=== PATIENT | male | born 1975 | race Caucasian/White ===

== ENCOUNTER 2016-03-20 23:43 | Emergency (ER) | payer SELFPAY ==
[~2016-03-20 23:43] MED LIST: AMLODIPINE BESY10 MG PO; ASPIR LOW81 MG PO; ATORVASTATIN CA80 MG PO; AUGMENTIN 875-1 EAC1 PO; BENADRYL ALLERG25 M2 PO; CLEOCIN PO; CLOPIDOGREL PO; COLCHICINE0.6 M1 PO; COUMADIN5 MG PO; CYMBALTA 60MG60 MG PO; CYMBALTA30 M1 PO; CYMBALTA60 M1 PO; DESYREL 50MG50 MG PO; DURAGESIC25 MCG/PAT TD; GLUCOTROL 5M5 MG/TAB PO; INDOMETHACIN SR75 MG PO; LISINOPRIL40 MG PO; LISINOPRIL5 MG PO; MEDI-FIRST ASP325 MG PO; METOPROLOL SUCC50 M2; NEURONTIN300 M1 PO; NITROSTAT0.4 M1 SL; NORCO 10-325 T1 EACH PO; NORCO 325 MG-51 TA1 PO; NORCO 325 MG-51 TAB PO; PERCOCET 325 MG1 TA2 PO; ULTRAM50 M1 PO; XANAX0.5 M1 PO; [UNRECOGNIZED DRUG - OTHER] PO
[2016-03-21] MEDS ORDERED: FLEXERIL 1010 MG/TAB PO (01:09)
[2016-03-21] MEDS ORDERED: NORCO 325 MG-51 TA1 PO (01:09)
== END 2016-03-21 02:00 | disposition home or self-care (01) ==
LOC: ED 23:43
DX: M54.41 Lumbago with sciatica, right side (principal); M54.42 Lumbago with sciatica, left side; R07.9 Chest pain, unspecified; S90.211A Contusion of right great toe with damage to nail, initial encounter; Z79.01 Long term (current) use of anticoagulants; W22.8XXA Striking against or struck by other objects, initial encounter
CPT/HCPCS: J1100; J1885

== ENCOUNTER → 2016-03-21 | Outpatient (CLI) | payer SELFPAY ==
[~2016-03-21] MED LIST changes: +CEFDINIR300 MG PO; +COUMADIN 1010 MG/TAB PO; +COUMADIN 1MG1 MG/TAB PO; +COUMADIN 5MG5 MG/TAB PO; +COUMADIN 77.5 MG/TAB PO; +FLEXERIL 1010 MG/TAB PO; +INDOCIN 25MG CA25 MG PO; +LANTUS SOLOS100 U/ML SQ; +METOPROLOL SUCC25 M1 PO; +NOVOLOG FLEX100 U/ML SQ; +PREDNISONE20 M1 PO; +ZOFRAN ODT8 M1 PO
[2016-03-21 02:00] VITALS: BP 164/103
== END ==
LOC: RAD 18:16
DX: S97.111A Crushing injury of right great toe, initial encounter (principal); S92.411A Displaced fracture of proximal phalanx of right great toe, initial encounter for closed fracture; X58.XXXA Exposure to other specified factors, initial encounter

== ENCOUNTER 2016-04-09 18:33 | Emergency (ER) | payer SELFPAY ==
[~2016-04-09 18:33] MED LIST changes: -CEFDINIR300 MG PO; -COUMADIN 1010 MG/TAB PO; -COUMADIN 1MG1 MG/TAB PO; -COUMADIN 5MG5 MG/TAB PO; -COUMADIN 77.5 MG/TAB PO; -INDOCIN 25MG CA25 MG PO; -LANTUS SOLOS100 U/ML SQ; -METOPROLOL SUCC25 M1 PO; -NOVOLOG FLEX100 U/ML SQ; -PREDNISONE20 M1 PO; -ZOFRAN ODT8 M1 PO
[2016-04-09] MEDS ORDERED: PREDNISONE20 M1 PO (19:19)
[2016-04-09] MEDS ORDERED: NORCO 325 MG-51 TA1 PO (19:19)
[2016-04-09] MEDS ORDERED: CEFDINIR300 MG PO (19:19)
== END 2016-04-09 19:40 | disposition home or self-care (01) ==
LOC: ED 18:33
DX: J20.9 Acute bronchitis, unspecified (principal)
CPT/HCPCS: J7512

== ENCOUNTER 2016-05-04 17:54 | Emergency (ER) | payer SELFPAY ==
[~2016-05-04 17:54] MED LIST changes: +CEFDINIR300 MG PO; +PREDNISONE20 M1 PO
[2016-05-04 20:35] VITALS: BP 118/82
== END 2016-05-04 20:35 | disposition home or self-care (01) ==
LOC: ED 17:54
DX: R07.89 Other chest pain (principal); F41.9 Anxiety disorder, unspecified; I10 Essential (primary) hypertension; I25.10 Atherosclerotic heart disease of native coronary artery without angina pectoris; E11.9 Type 2 diabetes mellitus without complications; Z79.01 Long term (current) use of anticoagulants; Z95.818 Presence of other cardiac implants and grafts; I25.2 Old myocardial infarction; Z87.891 Personal history of nicotine dependence
CPT/HCPCS: J0595; J1815; J1885; J2060

== ENCOUNTER 2016-06-19 12:27 | Emergency (ER) | payer SELFPAY ==
[2016-06-19] MEDS ORDERED: COUMADIN 5MG5 MG/TAB PO (12:59)
[2016-06-19] MEDS ORDERED: METOPROLOL SUCC25 M1 PO (13:00)
[2016-06-19] MEDS ORDERED: INDOCIN 25MG CA25 MG PO (13:01)
[2016-06-19] MEDS ORDERED: ZOFRAN ODT8 M1 PO (15:18)
[2016-06-19 15:25] VITALS: BP 147/106
[2016-06-19] MEDS ORDERED: COUMADIN 1MG1 MG/TAB PO (15:25)
== END 2016-06-19 15:36 | disposition home or self-care (01) ==
LOC: ED 12:27
DX: K52.9 Noninfective gastroenteritis and colitis, unspecified (principal); R51 Headache; E11.65 Type 2 diabetes mellitus with hyperglycemia
CPT/HCPCS: J1815; J2405; J7030

== ENCOUNTER 2016-07-10 13:24 | Emergency (ER) | payer SELFPAY ==
[~2016-07-10] VITALS: Ht 175.3 cm; Wt 90.9 kg
[~2016-07-10 13:24] MED LIST changes: +COUMADIN 1MG1 MG/TAB PO; +COUMADIN 5MG5 MG/TAB PO; +INDOCIN 25MG CA25 MG PO; +METOPROLOL SUCC25 M1 PO; +ZOFRAN ODT8 M1 PO
[2016-07-10] MEDS ORDERED: COUMADIN 1010 MG/TAB PO (14:43)
[2016-07-10] MEDS ORDERED: NORCO 325 MG-51 TA1 PO (16:34)
[2016-07-10 16:43] VITALS: BP 185/119
== END 2016-07-10 16:40 | disposition home or self-care (01) ==
LOC: ED 13:24
DX: R07.9 Chest pain, unspecified (principal); F41.9 Anxiety disorder, unspecified; I25.10 Atherosclerotic heart disease of native coronary artery without angina pectoris; Z87.891 Personal history of nicotine dependence; I10 Essential (primary) hypertension; Z95.5 Presence of coronary angioplasty implant and graft
CPT/HCPCS: J1885; J2060

== ENCOUNTER 2016-08-22 10:10 | Emergency (ER) | payer SELFPAY ==
[~2016-08-22] VITALS: Ht 175.3 cm; Wt 90.9 kg
[~2016-08-22 10:10] MED LIST changes: +COUMADIN 1010 MG/TAB PO
[2016-08-22] MEDS ORDERED: COUMADIN 77.5 MG/TAB PO (10:18)
[2016-08-22] MEDS ORDERED: LANTUS SOLOS100 U/ML SQ (10:19)
[2016-08-22] MEDS ORDERED: NOVOLOG FLEX100 U/ML SQ (10:20)
[2016-08-22 12:39] VITALS: BP 157/102
== END 2016-08-22 12:39 | disposition home or self-care (01) ==
LOC: ED 10:10
DX: I10 Essential (primary) hypertension (principal); I25.10 Atherosclerotic heart disease of native coronary artery without angina pectoris; I25.2 Old myocardial infarction; Z95.5 Presence of coronary angioplasty implant and graft; Z95.1 Presence of aortocoronary bypass graft; F41.9 Anxiety disorder, unspecified; Z87.891 Personal history of nicotine dependence; E11.9 Type 2 diabetes mellitus without complications; Z79.01 Long term (current) use of anticoagulants; Z79.02 Long term (current) use of antithrombotics/antiplatelets; Z79.4 Long term (current) use of insulin; T45.515A Adverse effect of anticoagulants, initial encounter; D68.32 Hemorrhagic disorder due to extrinsic circulating anticoagulants

== ENCOUNTER 2016-10-08 07:08 | Emergency (ER) | payer SELFPAY ==
[~2016-10-08] VITALS: Ht 175.3 cm; Wt 90.9 kg
[~2016-10-08 07:08] MED LIST changes: +COUMADIN 77.5 MG/TAB PO; +LANTUS SOLOS100 U/ML SQ; +NOVOLOG FLEX100 U/ML SQ
[2016-10-08 09:26] VITALS: BP 172/94
== END 2016-10-08 09:19 | disposition home or self-care (01) ==
LOC: ED 07:08
DX: G89.29 Other chronic pain (principal); I25.10 Atherosclerotic heart disease of native coronary artery without angina pectoris; Z79.01 Long term (current) use of anticoagulants; Z79.02 Long term (current) use of antithrombotics/antiplatelets; I10 Essential (primary) hypertension; E11.9 Type 2 diabetes mellitus without complications; Z87.891 Personal history of nicotine dependence; Z79.4 Long term (current) use of insulin
CPT/HCPCS: J1885

== ENCOUNTER 2016-11-28 04:03 | Emergency (ER) | payer SELFPAY ==
[~2016-11-28] VITALS: Ht 175.3 cm; Wt 93.2 kg
[2016-11-28] MEDS ORDERED: SINGULAIR PO (04:14)
[2016-11-28] MEDS ORDERED: CARDURA2 MG PO (04:14)
[2016-11-28] MEDS ORDERED: AUGMENTIN 875-1 EAC1 PO (04:42)
[2016-11-28 04:47] VITALS: BP 147/92
== END 2016-11-28 04:47 | disposition home or self-care (01) ==
LOC: ED 04:03
DX: S10.96XA Insect bite of unspecified part of neck, initial encounter (principal); W57.XXXA Bitten or stung by nonvenomous insect and other nonvenomous arthropods, initial encounter; K02.9 Dental caries, unspecified; I25.10 Atherosclerotic heart disease of native coronary artery without angina pectoris; I10 Essential (primary) hypertension; Z95.1 Presence of aortocoronary bypass graft; Z95.5 Presence of coronary angioplasty implant and graft; E11.9 Type 2 diabetes mellitus without complications; I25.2 Old myocardial infarction; Z79.4 Long term (current) use of insulin; Z79.01 Long term (current) use of anticoagulants; Z79.02 Long term (current) use of antithrombotics/antiplatelets; Z87.891 Personal history of nicotine dependence

== ENCOUNTER 2017-04-19 16:26 | Emergency (ER) | payer SELFPAY ==
[~2017-04-19 16:26] MED LIST changes: +CARDURA2 MG PO; +CYCLOBENZAPRINE10 M1 PO; +SINGULAIR PO
[2017-04-19] MEDS ORDERED: LANTUS PEN100 U/ML SQ (16:46)
[2017-04-19] MEDS ORDERED: NOVOLOG 100U100 U/ML SQ (16:48)
[2017-04-19] MEDS ORDERED: ACETAMINOPHEN-H1 TA1 PO (16:49)
[2017-04-19 17:19] VITALS: BP 138/86
== END 2017-04-19 17:20 | disposition home or self-care (01) ==
LOC: ED 16:26
DX: H16.8 Other keratitis (principal); H57.11 Ocular pain, right eye; I25.2 Old myocardial infarction; I25.10 Atherosclerotic heart disease of native coronary artery without angina pectoris; Z95.1 Presence of aortocoronary bypass graft

== ENCOUNTER 2017-07-03 16:34 | Emergency (ER) | payer SELFPAY ==
[~2017-07-03] VITALS: Ht 175.3 cm; Wt 87.7 kg
[~2017-07-03 16:34] MED LIST changes: +ACETAMINOPHEN-H1 TA1 PO; +LANTUS PEN100 U/ML SQ; +LISINOPRIL10 MG PO; -LISINOPRIL5 MG PO; +NOVOLOG 100U100 U/ML SQ
[2017-07-03 18:20] LABS: PROTHROMBIN TIME 9.9 SECONDS (9.0-12.0)
[2017-07-03] MEDS ORDERED: AMOXICILLIN 50500 MG PO (19:30)
[2017-07-03 19:47] VITALS: BP 188/108
== END 2017-07-03 19:47 | disposition home or self-care (01) ==
LOC: ED 16:34
PROVIDERS: Family Medicine
DX: R51 Headache (principal); H92.02 Otalgia, left ear; R68.84 Jaw pain; K03.81 Cracked tooth; I10 Essential (primary) hypertension; I25.10 Atherosclerotic heart disease of native coronary artery without angina pectoris; E11.9 Type 2 diabetes mellitus without complications; I25.2 Old myocardial infarction; Z79.01 Long term (current) use of anticoagulants; Z79.02 Long term (current) use of antithrombotics/antiplatelets; Z79.82 Long term (current) use of aspirin; Z79.4 Long term (current) use of insulin
CPT/HCPCS: J1885

== ENCOUNTER 2017-09-22 18:03 | Emergency (ER) | payer SELFPAY ==
[~2017-09-22] VITALS: Ht 175.3 cm; Wt 81.8 kg
[~2017-09-22 18:03] MED LIST changes: +AMOXICILLIN 50500 MG PO
[2017-09-22] MEDS ORDERED: TIZANIDINE HYDRO2 M1 PO (18:20)
[2017-09-22 18:51] LABS: EOS # 0.3 (0.04-0.40); EOS % 3.2 % (0.0-4.0); HEMOGLOBIN 14.9 g/dL (13.5-18.0); LYMPH# 1.9 (1.50-4.00); MEAN CELL VOLUME 85 fl (78-100); MEAN CORPUSCULAR HEMOGLOBIN 28 pg (27-31); MEAN CORPUSCULAR HGB CONC 33 g/dL (33-37); MONO # 0.7 (0.20-0.80); NEU # 5.2 (1.40-6.50); PLATELET COUNT 140 K/mm3 (130-400); RED CELL DISTRIBUTION WIDTH 13.6 % (11.5-14.5); WHITE BLOOD COUNT 8.1 K/mm3 (4.8-10.8)
[2017-09-22 18:56] LABS: MEAN PLATELET VOLUME 12.7 fl (7.4-10.4)
[2017-09-22 19:02] LABS: ALBUMIN 4.2 g/dL (3.5-5.0); BUN/CREATININE RATIO 16.2 (6.0-26.0); CALCIUM 8.8 mg/dL (8.4-10.2); POTASSIUM 4.1 mmol/L (3.6-5.0); TOTAL BILIRUBIN 0.5 mg/dL (0.2-1.3); TOTAL PROTEIN 7.4 g/dL (6.3-8.2)
[2017-09-22 19:08] LABS: CKMB ISOENZYME 1.8 ng/mL (0.6-3.5)
[2017-09-22 19:19] LABS: TROPONIN-I < 0.03 ng/mL (0.00-0.06)
[2017-09-22 19:29] LABS: PARTIAL THROMBOPLASTIN TIME 24.6 SECONDS (21.0-32.0); PROTHROMBIN TIME 11.2 SECONDS (9.0-12.0)
[2017-09-22 19:34] LABS: D-DIMER 0.31 mg/L FEU (0.15-0.50)
[2017-09-22 20:40] VITALS: BP 175/106
== END 2017-09-22 20:40 | disposition short-term general hospital (02) ==
LOC: ED 18:03
PROVIDERS: Nurse Practitioner Family
DX: R07.9 Chest pain, unspecified (principal); I25.10 Atherosclerotic heart disease of native coronary artery without angina pectoris; I10 Essential (primary) hypertension; E11.9 Type 2 diabetes mellitus without complications; I25.2 Old myocardial infarction; Z95.1 Presence of aortocoronary bypass graft; Z95.5 Presence of coronary angioplasty implant and graft; Z87.891 Personal history of nicotine dependence; Z79.01 Long term (current) use of anticoagulants; Z79.02 Long term (current) use of antithrombotics/antiplatelets; Z79.82 Long term (current) use of aspirin; Z79.4 Long term (current) use of insulin; Z79.899 Other long term (current) drug therapy
CPT/HCPCS: J1885; J2270

== ENCOUNTER 2017-11-29 22:05 | Emergency (ER) | payer MEDICAID ==
[~2017-11-29 22:05] MED LIST changes: +TIZANIDINE HYDRO2 M1 PO
[2017-11-29 23:04] LABS: EOS # 0.5 (0.04-0.40); HEMATOCRIT 41.9 % (42.0-52.0); HEMOGLOBIN 14.1 g/dL (13.5-18.0); LYMPH# 1.9 (1.50-4.00); MEAN CELL VOLUME 86 fl (78-100); MEAN CORPUSCULAR HEMOGLOBIN 29 pg (27-31); MEAN CORPUSCULAR HGB CONC 34 g/dL (33-37); MONO # 0.6 (0.20-0.80); NEU # 5.2 (1.40-6.50); PLATELET COUNT 153 K/mm3 (130-400); RED BLOOD COUNT 4.89 M/mm3 (4.20-5.60); RED CELL DISTRIBUTION WIDTH 13.8 % (11.5-14.5); WHITE BLOOD COUNT 8.2 K/mm3 (4.8-10.8)
[2017-11-29] MEDS ORDERED: DOLOPHINE HCL10 MG PO (23:06)
[2017-11-29] MEDS ORDERED: VICODIN 300 MG-1 TAB PO (23:07)
[2017-11-29] MEDS ORDERED: XANAX2 MG PO (23:08)
[2017-11-29 23:10] LABS: EOS % 5.9 % (0.0-4.0); MEAN PLATELET VOLUME 12.5 fl (7.4-10.4)
[2017-11-29] MEDS ORDERED: ZYLOPRIM100 MG PO (23:10)
[2017-11-29 23:18] LABS: ALBUMIN 3.6 g/dL (3.5-5.0); CALCIUM 8.9 mg/dL (8.4-10.2); POTASSIUM 3.9 mmol/L (3.6-5.0); TOTAL BILIRUBIN 0.5 mg/dL (0.2-1.3); TOTAL PROTEIN 5.9 g/dL (6.3-8.2)
[2017-11-29] MEDS ORDERED: ZITHROMAX Z PA250 MG PO (23:57)
[2017-11-29] MEDS ORDERED: ATROVENT HFA IH (23:57)
[2017-11-29] MEDS ORDERED: PREDNISONE20 M1 PO (23:57)
[2017-11-29] MEDS ORDERED: PANTOPRAZOLE SO40 MG PO (23:57)
[2017-11-30 00:08] VITALS: BP 127/73
== END 2017-11-30 00:08 | disposition home or self-care (01) ==
LOC: ED 22:05
PROVIDERS: Family Medicine
DX: J40 Bronchitis, not specified as acute or chronic (principal); M94.0 Chondrocostal junction syndrome [Tietze]; K21.9 Gastro-esophageal reflux disease without esophagitis; I25.10 Atherosclerotic heart disease of native coronary artery without angina pectoris; I10 Essential (primary) hypertension; Z95.1 Presence of aortocoronary bypass graft; Z95.5 Presence of coronary angioplasty implant and graft; I25.2 Old myocardial infarction; E78.5 Hyperlipidemia, unspecified; E10.8 Type 1 diabetes mellitus with unspecified complications; Z79.02 Long term (current) use of antithrombotics/antiplatelets; Z79.82 Long term (current) use of aspirin; Z79.4 Long term (current) use of insulin; Z79.891 Long term (current) use of opiate analgesic; Z79.899 Other long term (current) drug therapy; G89.29 Other chronic pain
CPT/HCPCS: J1885

== ENCOUNTER 2017-12-11 19:15 | Emergency (ER) | payer MEDICAID ==
[~2017-12-11] VITALS: Ht 175.3 cm; Wt 82.3 kg
[~2017-12-11 19:15] MED LIST changes: +ATROVENT HFA IH; +DOLOPHINE HCL10 MG PO; +PANTOPRAZOLE SO40 MG PO; +VICODIN 300 MG-1 TAB PO; +XANAX2 MG PO; +ZITHROMAX Z PA250 MG PO; +ZYLOPRIM100 MG PO
[2017-12-11] MEDS ORDERED: VICODIN 300 MG-1 TAB PO (20:22)
[2017-12-11 20:33] VITALS: BP 123/84
== END 2017-12-11 20:33 | disposition home or self-care (01) ==
LOC: ED 19:15
DX: G89.29 Other chronic pain (principal); R07.89 Other chest pain; Z76.0 Encounter for issue of repeat prescription; M89.8X8 Other specified disorders of bone, other site; Z95.1 Presence of aortocoronary bypass graft; Z95.5 Presence of coronary angioplasty implant and graft; Z87.891 Personal history of nicotine dependence

== ENCOUNTER 2017-12-26 21:18 | Emergency (ER) | payer MEDICAID ==
[~2017-12-26] VITALS: Ht 175.3 cm; Wt 83.2 kg
[2017-12-26 21:45] VITALS: BP 185/110
[2017-12-26] MEDS ORDERED: NORCO 325 MG-51 TA1 PO (23:05)
== END 2017-12-26 23:18 | disposition home or self-care (01) ==
LOC: ED 21:18
DX: G89.29 Other chronic pain (principal); F11.93 Opioid use, unspecified with withdrawal; R07.2 Precordial pain; I25.10 Atherosclerotic heart disease of native coronary artery without angina pectoris; Z95.5 Presence of coronary angioplasty implant and graft; E11.9 Type 2 diabetes mellitus without complications; Z95.1 Presence of aortocoronary bypass graft; Z79.02 Long term (current) use of antithrombotics/antiplatelets; Z79.82 Long term (current) use of aspirin; Z79.4 Long term (current) use of insulin; F41.9 Anxiety disorder, unspecified; Z79.899 Other long term (current) drug therapy; M89.8X8 Other specified disorders of bone, other site

== ENCOUNTER 2018-06-20 15:13 | Emergency (ER) | payer MEDICAID ==
[~2018-06-20] VITALS: Ht 175.3 cm; Wt 90.9 kg
[2018-06-20] MEDS ORDERED: ALBUTEROL2.5 MG/3 M IH (15:26)
[2018-06-20] MEDS ORDERED: LISINOPRIL20 MG PO (15:27)
[2018-06-20] MEDS ORDERED: AMITRIPTYLINE H50 M1 PO (15:28)
[2018-06-20] MEDS ORDERED: DOXAZOSIN2 MG PO (15:28)
[2018-06-20] MEDS ORDERED: COREG 6.256.25 MG/TA PO ×2 (15:31)
[2018-06-20] MEDS ORDERED: TRAMADOL 50 MG TAB PO (17:06)
[2018-06-20 17:12] VITALS: BP 151/103
== END 2018-06-20 17:15 | disposition home or self-care (01) ==
LOC: ED 15:13
DX: S34.109A Unspecified injury to unspecified level of lumbar spinal cord, initial encounter (principal); S90.32XA Contusion of left foot, initial encounter; S80.812A Abrasion, left lower leg, initial encounter; S80.811A Abrasion, right lower leg, initial encounter; I25.10 Atherosclerotic heart disease of native coronary artery without angina pectoris; J44.9 Chronic obstructive pulmonary disease, unspecified; E11.9 Type 2 diabetes mellitus without complications; M10.9 Gout, unspecified; G89.29 Other chronic pain; W10.2XXA Fall (on)(from) incline, initial encounter; Y92.009 Unspecified place in unspecified non-institutional (private) residence as the place of occurrence of the external cause
CPT/HCPCS: J1885

== ENCOUNTER 2018-08-19 16:00 | Outpatient (RCR) | payer MEDICAID ==
[~2018-08-19 16:00] MED LIST changes: +ALBUTEROL2.5 MG/3 M IH; +AMITRIPTYLINE100 M3 PO; +COREG 6.256.25 MG/TA PO; +DOXAZOSIN2 MG PO; +LISINOPRIL20 MG PO; +TRAMADOL 50 MG TAB PO; +XANAX 1MG1 MG PO; -XANAX2 MG PO
== END 2018-08-19 16:30 | disposition still patient (30) ==
LOC: PT 16:00
DX: M54.5 Low back pain (principal); G89.29 Other chronic pain

== ENCOUNTER 2018-09-10 10:35 | Emergency (ER) | payer OTHER ==
[2018-09-10] MEDS ORDERED: ATORVASTATIN CA80 MG PO (11:27)
[2018-09-10] MEDS ORDERED: ESCITALOPRAM20 MG PO (11:28)
[2018-09-10 11:29] LABS: EOS # 0.2 (0.04-0.40); HEMATOCRIT 47.5 % (42.0-52.0); HEMOGLOBIN 16.2 g/dL (13.5-18.0); LYMPH# 1.6 (1.50-4.00); MEAN CELL VOLUME 86 fl (78-100); MEAN CORPUSCULAR HEMOGLOBIN 29 pg (27-31); MEAN CORPUSCULAR HGB CONC 34 g/dL (33-37); MEAN PLATELET VOLUME 12.4 fl (7.4-10.4); MONO # 0.7 (0.20-0.80); NEU # 5.1 (1.40-6.50); PLATELET COUNT 163 K/mm3 (130-400); RED BLOOD COUNT 5.51 M/mm3 (4.20-5.60); RED CELL DISTRIBUTION WIDTH 13.5 % (11.5-14.5); WHITE BLOOD COUNT 7.6 K/mm3 (4.8-10.8)
[2018-09-10 11:35] LABS: PROTHROMBIN TIME 9.8 SECONDS (9.0-12.0)
[2018-09-10 11:40] LABS: ALBUMIN 4.5 g/dL (3.5-5.0); CALCIUM 9.3 mg/dL (8.3-10.5); POTASSIUM 4.1 mmol/L (3.5-5.1); TOTAL BILIRUBIN 0.5 mg/dL (0.2-1.2); TOTAL PROTEIN 7.9 g/dL (6.4-8.3)
[2018-09-10 11:50] LABS: URINE APPEARANCE CLEAR; URINE BILIRUBIN NEGATIVE (NEGATIVE); URINE BLOOD 50 ery/uL (NEGATIVE); URINE COLOR YELLOW; URINE KETONE NEGATIVE (NEGATIVE); URINE LEUKOCYTE ESTERASE NEGATIVE (NEGATIVE); URINE NITRATE NEGATIVE (NEGATIVE); URINE PROTEIN(semi-quant) 1+ mg/dL (NEGATIVE); URINE UROBILINOGEN NORMAL (NORMAL); URINE WBC 0-1 /hpf (0-3)
[2018-09-10 11:50] LABS: TROPONIN-I 0.03 ng/mL (<0.030)
[2018-09-10] MEDS ORDERED: ZOFRAN4 M2 PO (15:00)
[2018-09-10] MEDS ORDERED: AUGMENTIN 875-1 EAC1 PO (15:00)
[2018-09-10 15:09] VITALS: BP 177/83
== END 2018-09-10 15:10 ==
LOC: ED 10:35
PROVIDERS: Nurse Practitioner Primary Care
DX: S06.0X0A Concussion without loss of consciousness, initial encounter (principal); S20.219A Contusion of unspecified front wall of thorax, initial encounter; E11.9 Type 2 diabetes mellitus without complications; F17.210 Nicotine dependence, cigarettes, uncomplicated; I10 Essential (primary) hypertension; Z79.82 Long term (current) use of aspirin; Z79.02 Long term (current) use of antithrombotics/antiplatelets; Z79.4 Long term (current) use of insulin; Z91.14 Patient's other noncompliance with medication regimen; Y04.0XXA Assault by unarmed brawl or fight, initial encounter
CPT/HCPCS: J1815; J2405; J7030

== ENCOUNTER → 2019-01-26 | Outpatient (CLI) | payer MEDICAID ==
[~2019-01-26] MED LIST changes: +ESCITALOPRAM20 MG PO; +ZOFRAN4 M2 PO
== END ==
LOC: RAD 06:44
DX: M54.16 Radiculopathy, lumbar region (principal)

== ENCOUNTER 2019-02-05 08:45 | Emergency (ER) | payer MEDICAID ==
[~2019-02-05] VITALS: Ht 175.3 cm; Wt 86.8 kg
[2019-02-05] MEDS ORDERED: TRAMADOL 50 MG TAB PO (10:29)
[2019-02-05 10:37] VITALS: BP 147/102
== END 2019-02-05 10:38 | disposition home or self-care (01) ==
LOC: ED 08:45
DX: M25.511 Pain in right shoulder (principal); E11.9 Type 2 diabetes mellitus without complications; I10 Essential (primary) hypertension; F41.9 Anxiety disorder, unspecified; M10.9 Gout, unspecified; M54.9 Dorsalgia, unspecified; G89.29 Other chronic pain; Z79.02 Long term (current) use of antithrombotics/antiplatelets; Z79.82 Long term (current) use of aspirin; Z79.4 Long term (current) use of insulin; Z87.891 Personal history of nicotine dependence; Z95.5 Presence of coronary angioplasty implant and graft; X58.XXXA Exposure to other specified factors, initial encounter; Y92.009 Unspecified place in unspecified non-institutional (private) residence as the place of occurrence of the external cause

== ENCOUNTER → 2019-11-01 | Outpatient (CLI) | payer MEDICAID | LOC: AMSURD 11:52 | DX: I25.10 Atherosclerotic heart disease of native coronary artery without angina pectoris (principal) ==

== ENCOUNTER 2020-12-20 20:29 | Emergency (ER) | payer MEDICAID ==
[2020-12-20 21:06] LABS: BASO # 0.04 K/mm3 (0.02-0.10); EOS # 0.16 K/mm3 (0.04-0.40); EOS % 2.8 % (0.0-4.0); HEMATOCRIT 43.7 % (42.0-52.0); HEMOGLOBIN 15.3 g/dL (13.5-18.0); LYMPH# 1.25 K/mm3 (1.50-4.00); MEAN CELL VOLUME 88 fl (78-100); MEAN CORPUSCULAR HEMOGLOBIN 31 pg (27-31); MEAN CORPUSCULAR HGB CONC 35 g/dL (33-37); MEAN PLATELET VOLUME 12.5 fl (7.4-10.4); MONO # 0.42 K/mm3 (0.20-0.80); NEU # 3.76 K/mm3 (1.40-6.50); PLATELET COUNT 142 K/mm3 (130-400); RED BLOOD COUNT 4.97 M/mm3 (4.20-5.60); WHITE BLOOD COUNT 5.6 K/mm3 (4.8-10.8)
[2020-12-20] MEDS ORDERED: ALDACTONE 25MG25 MG PO (21:12)
[2020-12-20] MEDS ORDERED: INCRUSE EL62.5 MCG/A IH (21:13)
[2020-12-20 21:15] LABS: ALBUMIN 4.2 g/dL (3.5-5.0); POTASSIUM 3.7 mmol/L (3.5-5.1)
[2020-12-20] MEDS ORDERED: ENTRESTO 24 MG1 EACH PO (21:15)
[2020-12-20] MEDS ORDERED: INSULIN LI100 UNIT/2 SQ (21:15)
[2020-12-20 21:16] LABS: SODIUM 135 mmol/L (136-145)
[2020-12-20 21:17] LABS: CALCIUM 9.3 mg/dL (8.3-10.5)
[2020-12-20] MEDS ORDERED: FOLIC ACID1 MG PO (21:17)
[2020-12-20 21:18] LABS: GLUCOSE 353 mg/dL (75-110); TOTAL PROTEIN 7.1 g/dL (6.4-8.3)
[2020-12-20] MEDS ORDERED: RANOLAZINE ER1000 MG PO (21:18)
[2020-12-20] MEDS ORDERED: ISOSORBIDE MON120 MG PO (21:18)
[2020-12-20] MEDS ORDERED: LANTUS PEN100 U/ML SQ (21:19)
[2020-12-20] MEDS ORDERED: DAILY VALUE1 EACH PO (21:19)
[2020-12-20 21:20] LABS: TOTAL BILIRUBIN 0.5 mg/dL (0.2-1.2)
[2020-12-20] MEDS ORDERED: KLONOPIN 0.5MG0.5 MG PO (21:20)
[2020-12-20] MEDS ORDERED: ELIQUIS5 MG PO (21:20)
[2020-12-20] MEDS ORDERED: BRILINTA90 MG PO (21:20)
[2020-12-20] MEDS ORDERED: TEMAZEPAM30 M1 PO (21:21)
[2020-12-20] MEDS ORDERED: VICTOZA 3-0.6 MG/0.1 SQ (21:22)
[2020-12-20 21:23] LABS: AST-SGOT 12 U/L (5-34)
[2020-12-20] MEDS ORDERED: VITAMIN B1 87 M1 TAB PO (21:23)
[2020-12-20 21:24] LABS: ALT/SGPT 15 U/L (0-55)
[2020-12-20 21:27] LABS: CARBON DIOXIDE 16 mmol/L (22-29)
[2020-12-20 21:30] LABS: TROPONIN-I < 0.03 ng/mL (<0.030)
[2020-12-20 22:36] LABS: URINE APPEARANCE CLEAR; URINE COLOR YELLOW; URINE PROTEIN(semi-quant) TRACE mg/dL (NEGATIVE)
[2020-12-20 22:37] LABS: URINE BILIRUBIN NEGATIVE (NEGATIVE); URINE BLOOD NEGATIVE (NEGATIVE); URINE KETONE 1+ (NEGATIVE); URINE LEUKOCYTE ESTERASE NEGATIVE (NEGATIVE); URINE NITRATE NEGATIVE (NEGATIVE); URINE UROBILINOGEN NORMAL (NORMAL)
[2020-12-20 22:38] LABS: URINE MUCUS PRESENT (NOT PRESENT); URINE WBC 0-1 /hpf (0-3)
[2020-12-20 23:20] VITALS: BP 140/82
== END 2020-12-20 23:14 | disposition left against medical advice (07) ==
LOC: ED 20:29
PROVIDERS: Physician Assistant
DX: E11.9 Type 2 diabetes mellitus without complications (principal); I10 Essential (primary) hypertension; E11.10 Type 2 diabetes mellitus with ketoacidosis without coma; I25.10 Atherosclerotic heart disease of native coronary artery without angina pectoris; G89.29 Other chronic pain; E11.65 Type 2 diabetes mellitus with hyperglycemia; E78.5 Hyperlipidemia, unspecified; Z95.1 Presence of aortocoronary bypass graft; Z86.79 Personal history of other diseases of the circulatory system; Z95.5 Presence of coronary angioplasty implant and graft; Z79.4 Long term (current) use of insulin; Z79.01 Long term (current) use of anticoagulants; Z79.899 Other long term (current) drug therapy
CPT/HCPCS: J1630; J1815; J2405; J7030